=== PATIENT | female | born 2000 | race Caucasian/White ===

== ENCOUNTER 2021-03-15 13:32 | Emergency (ER) | payer BC, OTHER ==
[2021-03-15 14:05] VITALS: RESP 18
[2021-03-15] MEDS ORDERED: AMOXIC-POT CLAV 875-125MG 1 EACH TAB PO STA (15:15)
--- NOTE | 2021-03-15 15:39 | ED ---
Animal Bite HPI - General Chief Complaint: Animal Bite Stated Complaint: [facility] Cat Bite Time Seen by Provider: 03/15/21 15:13 Source: patient, RN notes reviewed Mode of arrival: ambulatory Limitations: no limitations - History of Present Illness Initial Comments: A she is a 20-year-old female that presents to the emergency department complaining of a cat bite to the left thumb. She notes that she did clean it well at work. 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 She is unsure of Vaccination Status but Reported That Her Work Does a Quarantine Process with the Animals to Check for Rabies and That She Does Not Need the Rabies Vaccine at This Time. She was a well-appearing 20-year-old female. She was up-to-date on her tetanus vaccine within the last 2 years. She denied any other issues or complaints. She denied chest pain shortness of breath headache nausea vomiting diarrhea constipation fever fatigue chills. - Related Data Previous Rx's Medication Instructions Recorded Amoxicillin/Potassium Clav 1 tab PO Q12HR #20 tab 03/15/21 [Augmentin 875-125 Tablet] Allergies Allergy/AdvReac Type Severity Reaction Status Date / Time No Known Allergies Allergy Verified 03/15/21 14:02 Review of Systems ROS Statement: Those systems with pertinent positive or pertinent negative responses have been documented in the HPI. ROS Other: All systems not noted in ROS Statement are negative. Past Medical History Past Medical History: No Reported History History of Any Multi-Drug Resistant Organisms: None Reported Past Surgical History: No Surgical Hx Reported Past Psychological History: No Psychological Hx Reported Smoking Status: Never smoker Past Alcohol Use History: None Reported Past Drug Use History: None Reported General Exam Limitations: no limitations General appearance: alert, in no apparent distress Head exam: Present: atraumatic, normocephalic, normal inspection Eye exam: Present: normal appearance, PERRL, EOMI. Absent: scleral icterus, conjunctival injection, periorbital swelling ENT exam: Present: normal exam, mucous membranes moist Neck exam: Present: normal inspection Respiratory exam: Present: normal lung sounds bilaterally. Absent: respiratory distress, wheezes, rales, rhonchi, stridor Cardiovascular Exam: Present: regular rate, normal rhythm, normal heart sounds. Absent: systolic murmur, diastolic murmur, rubs, gallop, clicks Extremities exam: Present: normal inspection, full ROM, normal capillary refill. Absent: tenderness, pedal edema, joint swelling, calf tenderness Neurological exam: Present: alert, oriented X3 Psychiatric exam: Present: normal affect, normal mood Skin exam: Present: warm, dry, intact, normal color, other (Several small puncture wounds to the left thumb, nonsuturable, nonbleeding.). Absent: rash Course Vital Signs 03/15/21 14:02 Temperature 98.3 F Pulse Rate 83 Respiratory 18 Rate Blood Pressure 117/73 O2 Sat by Pulse 99 Oximetry Medical Decision Making - Medical Decision Making 20-year-old female with Right to left thumb. Left thumb was irrigated thoroughly with warm water under the sink. 1 tablet of Augmentin ordered. Tetanus vaccine is up-to-date. Case discussed with Dr. Porras, patient discharge home. Antibiotics sent to pharmacy. Disposition Clinical Impression: Cat bite Disposition: HOME SELF-CARE Condition: Serious Instructions (If sedation given, give patient instructions): Animal Bite (ED) Additional Instructions: Please return to the Emergency Department if symptoms worsen or any other concerns. Follow-up with primary care 1-2 days. Take antibiotics as prescribed until complete. Prescriptions: Amoxicillin/Potassium Clav [Augmentin 875-125 Tablet] 1 tab PO Q12HR #20 tab Is patient prescribed a controlled substance at d/c from ED?: No Referrals: Zuleika Bhakta III, MD [Primary Care Provider] - 1-2 days Time of Disposition: 15:39
[2021-03-15 15:47] VITALS: BP 118/71; PULSE 81; TEMP 98.6
== END 2021-03-15 15:47 | disposition home or self-care (01) ==
LOC: EC 13:32
DX: S61.052A Open bite of left thumb without damage to nail, initial encounter (principal); W55.01XA Bitten by cat, initial encounter
CPT/HCPCS: 99283